=== PATIENT | male | born 1985 | race Caucasian/White ===

== ENCOUNTER 2022-09-26 01:26 | Emergency (ER) | payer MEDICAID, SELFPAY ==
[2022-09-26 01:28] VITALS: BP 113/66; PULSE 65; RESP 16; TEMP 36.6; O2SAT 97; BMI 29.9
--- NOTE | 2022-09-26 01:40 | ED_ITS ---
HPI - Wound/Laceration General: Chief Complaint: Wound/Laceration Stated Complaint: Suture Issues Time Seen by Provider: 09/26/22 01:34 History of Present Illness: 37-year-old male patient comes in for injury to the left palmar hand. Patient had been seen at a prior ER tonight and was repaired with sutures. Patient reports getting home and going to the bathroom and bumping his hand and it started bleeding. Patient was then brought to this ER by EMS for further evaluation. Associated symptoms: Denies fever(s) Review of Systems General: Reports: 10 or more systems reviewed and unremarkable except in HPI and below Const: Denies: fever(s) Card: Denies: chest pain Resp: Denies: dyspnea : Denies: difficulty urinating Musc: Reports: extremity pain Skin/Breast: Reports: new lesions (Laceration palmar left hand) Physical Exam Const: COMMON NORMALS: patient oriented x3 HENMT: COMMON NORMALS: normocephalic HEAD & SCALP: normocephalic Neck/C-Spine: COMMON NORMALS: full ROM Resp: COMMON NORMALS: normal respiratory effort Cardio: COMMON NORMALS: regular rate RATE: regular rate Back/Pelvis: COMMON NORMALS: thoracic and lumbar spine normal to inspection Extremity: LEFT UPPER EXTREMITY: Yes hand & digits (3 cm laceration ulnar palm left hand) Neuro: COMMON NORMALS: patient oriented x3 Skin: TRAUMA: laceration (Palmar left hand) Procedures Laceration Laceration 1: Site: hand Side (If applicable): left Size (cm): 3.5 Description: linear Local Anesthetic: lidocaine 1% and with epi Amount of anesthesia used (mL): 6 Skin layer closed with: nylon Size (cm): 4-0 Number of sutures: 4 Technique: simple, interrupted (1) and horizontal mattress (3) Course Vital Signs: Vital signs: Vital Signs Temperature 97.9 F 09/26/22 01:28 Pulse Rate 58 L 09/26/22 02:18 Respiratory Rate 16 09/26/22 02:18 Blood Pressure 121/71 09/26/22 02:18 Pulse Oximetry 94 09/26/22 02:18 Oxygen Delivery Me thod 09/26/22 02:18 MDM - Wound/Laceration Medical Decision Making 37-year-old male patient comes in today for injury to the palmar left hand. Patient had the hand repaired in the emergency department in [place] had gone home and had went to the bathroom and his hand started bleeding again. Patient called EMS and then was brought to our emergency department for further evaluation and treatment. On exam and note 3 and half centimeter laceration to the hand that has been approximated with 4 simple interrupted sutures. Differential diagnosis hematoma, neurovascular injury, laceration. Wound was opened up and hematoma was evacuated, wound was then closed with 3 [id number] mattress sutures and 1 simple interrupted suture. Patient was then monitored for return of bleeding. Elastic bandage was applied to the wound with gauze to prevent further bleeding. Bleeding was controlled. Patient was released to home and elastic bandage and sling. Patient be kept on Augmentin 875 1 tablet twice a day for 7 days. Patient was given some hydrocodone for his pain. Discharge Plan Discharge Patient Disposition: Home Clinical Impression: Complicated laceration of hand Qualifiers: Encounter type: initial encounter Laterality: left Qualified Code(s): S61.412A - Laceration without foreign body of left hand, initial encounter Condition: Stable Prescriptions: New hydrocodone-acetaminophen 7.5-325 mg tablet 1 tab PO Q8H PRN (Reason: pain (scale score 7-10)) Qty: 7 0RF amoxicillin-pot clavulanate 875-125 mg tablet 1 tab PO BID Qty: 14 0RF Discharge Orders: Discharge ED (Routine); Ordered 09/26/22 Ordered By: Tera Britton Discharge Diet: Usual diet Patient Instructions: Laceration (ED) Activity Restrictions/Additional Instructions: Keep wound clean and dry. Is important keep the wound as dry as possible for the next 48 hours. Leave the elastic bandage on the hand as wrapped for the next 24 hours. After that you can change the dressing daily and use wrap as needed. Sutures need to come out in 7 to 10 days. Take antibiotic amoxicillin with potassium clavulanate 1 tablet twice a day for 7 days. Drink plenty of water with antibiotic. Use acetaminophen and/or ibuprofen as needed for pain. Use hydrocodone as needed for severe pain. Follow-up with primary care in 3 days for recheck. Return to ED for new concerns. Coding Level of Care Code ED Perianesthesia Manager for Roderick Clark
[2022-09-26 01:53] VITALS: RESP 18; O2SAT 96
[2022-09-26] MEDS: fentaNYL 50 mcg/mL INJ 2mL 100 MCG IVP (01:53)
[2022-09-26] MEDS: sodium chloride 0.9% 500 ML 999 ML IV (01:53)
[2022-09-26 01:54] VITALS: O2SAT 96
[2022-09-26 02:18] VITALS: BP 121/71; PULSE 58; RESP 16; O2SAT 94
[2022-09-26] MEDS: amoxicillin-clav 875-125 mg Tablet 1 TAB PO (02:43)
[2022-09-26 02:48] VITALS: BP 140/87; PULSE 59; RESP 16; O2SAT 94
--- NOTE | 2022-10-05 10:44 | DCPLANNER ---
Addendum entered by Monica Amaya 10/13/22 08:47: Patient had a follow up appointment scheduled with Dr. Moreno at [facility] - patient did attend appointment Original Note: entry manager called patient due to no primary care physician. entry manager spoke with patient, he stated that he would like to be established with a provider. entry manager called [facility], spoke with Erma, gave clinic patients information. A follow up appointment was scheduled for Tuesday, October 11, 2022 at 10:[address] Moreno. entry manager called patient and gave patients the appointment information.
== END 2022-09-26 02:48 | disposition home or self-care (01) ==
PROVIDERS: Emergency Provider Nurse Practitioner Family; PCP Family Medicine
DX: S61.412A Laceration without foreign body of left hand, initial encounter (principal); X58.XXXA Exposure to other specified factors, initial encounter
CPT/HCPCS: 12002; 96361; 96374; 99284; J3010; J7040

== ENCOUNTER → 2022-10-11 10:35 | Outpatient (BNVA) | payer MEDICAID, SELFPAY | PROVIDERS: PCP Family Medicine; Visit Provider Family Medicine | DX: B19.20 Unspecified viral hepatitis C without hepatic coma (principal) | CPT/HCPCS: 80053; 80061; 80074; 85025; 87522 ==

== ENCOUNTER → 2023-08-23 15:09 | Outpatient (BNVA) | payer MEDICAID, SELFPAY | PROVIDERS: PCP Family Medicine; Visit Provider Family Medicine | DX: B19.20 Unspecified viral hepatitis C without hepatic coma (principal) | CPT/HCPCS: 80053; 85025; 85610; 87522; 87806; 87902 ==

== ENCOUNTER 2023-08-31 12:26 | Outpatient (CLI) | payer MEDICAID, SELFPAY ==
--- NOTE | 2023-08-31 12:45 | US_ITS ---
WS: [id number] RIGHT UPPER QUADRANT ULTRASOUND HISTORY: hepatitis c COMPARISON: None available. Liver: 15.1 cm in length. Normal size liver and echogenicity. No bile duct dilatation or mass. Portal Vein: Normal hepatopetal flow with monophasic waveform. Gallbladder: Normally distended gallbladder with no stones or wall thickening. CBD: Not imaged. No intrahepatic duct dilatation. Pancreas: Completely obscured. Right kidney: 11.2 cm in length. Normal size and echogenicity. No hydronephrosis or mass. Aorta and IVC: Unremarkable abdominal aorta and IVC. No ascites. IMPRESSION: 1. Normal gallbladder. 2. No intrahepatic bile duct dilatation. 3. Negative RIGHT kidney.
== END 2023-08-31 12:27 | disposition home or self-care (01) ==
LOC: RAD 12:26
PROVIDERS: PCP Family Medicine; Visit Provider Family Medicine
DX: B19.20 Unspecified viral hepatitis C without hepatic coma (principal)
CPT/HCPCS: 76705